=== PATIENT | female | born 2000 | race American Indian/Alaskan Native ===

== ENCOUNTER 2018-01-18 14:02 | Emergency (ER) | payer BC ==
[2018-01-18] MEDS ORDERED: Sodium Chloride 0.9% 1,000 ML IV STA (15:24)
[2018-01-18 15:25] VITALS: O2SAT 99; BMI 39.4
--- NOTE | 2018-01-18 16:22 | ED PDOC ---
Arrival/HPI - General Chief Complaint: Headache Time Seen by Provider: 01/18/18 15:22 Historian: Patient - History of Present Illness Narrative History of Present Illness (Text): 01/18/18 16:19 18 year old female, whose past medical history includes a current , who presents to the emergency department complaining of headache, fatigue, suprapubic abdominal pain, and diarrhea x 3 weeks. Patient notes she is 12 weeks with no prior ultrasound. She reports that the symptoms are intermittent. Patient denies any fevers, chills, chest pain, shortness of breath, nausea, vomiting, back pain, neck pain, or any other complaint. Denies vaginal bleeding 01/18/18 17:53 01/18/18 19:24 Time/Duration: < month (3 weeks) Symptom Onset: Gradual Symptom Course: Intermittent Activities at Onset: Light Context: Home Past Medical History - Provider Review Nursing Documentation Reviewed: Yes - Past History Past History: No Previous - Infectious Disease Hx of Infectious Diseases: None - Tetanus Immunization Tetanus Immunization: Unknown - Psychiatric Hx Depression: No Hx Emotional Abuse: No Hx Physical Abuse: No Hx Substance Use: No - Past Surgical History Past Surgical History: No Previous - Suicidal Assessment Feels Threatened In Home Enviroment: No Family/Social History - Physician Review Nursing Documentation Reviewed: Yes Family/Social History: Unknown Family HX Smoking Status: Never Smoked Hx Alcohol Use: No Hx Substance Use: No Hx Substance Use Treatment: No Allergies/Home Meds Allergies/Adverse Reactions: Allergies No Known Allergies Allergy (Verified 01/18/18 15:25) Home Medications: Home Meds Medication Instructions Recorded Confirmed No Known Home Med 01/18/18 01/18/18 Review of Systems - Physician Review All systems were reviewed & negative as marked: Yes - Review of Systems Constitutional: Fatigue Eyes: Normal ENT: Normal Respiratory: Normal. absent: SOB, Cough Cardiovascular: Normal. absent: Chest Pain Gastrointestinal: Abdominal Pain, Diarrhea. absent: Nausea, Vomiting Genitourinary Female: Normal. absent: Dysuria, Frequency, Hematuria, Urine Output Changes, Vaginal Bleeding, Vaginal Discharge Musculoskeletal: Normal. absent: Back Pain, Neck Pain Skin: Normal. absent: Rash Neurological: Headache Endocrine: Normal Hemo/Lymphatic: Normal Psychiatric: Normal Physical Exam Vital Signs Reviewed: Yes Vital Signs Temp Pulse Resp BP Pulse Ox 01/18/18 18:51 98.5 F 74 18 117/58 L 99 01/18/18 15:21 97.8 F 89 20 128/71 99 Temperature: Afebrile Blood Pressure: Normal Pulse: Regular Respiratory Rate: Normal Appearance: Positive for: Well-Appearing, Non-Toxic, Comfortable Pain Distress: None Mental Status: Positive for: Alert and Oriented X 3 - Systems Exam Head: Present: Atraumatic, Normocephalic Pupils: Present: PERRL Extroacular Muscles: Present: EOMI Conjunctiva: Present: Normal Mouth: Present: Moist Mucous Membranes Neck: Present: Normal Range of Motion Respiratory/Chest: Present: Clear to Auscultation, Good Air Exchange. No: Respiratory Distress, Accessory Muscle Use Cardiovascular: Present: Regular Rate and Rhythm, Normal S1, S2. No: Murmurs Abdomen: No: Tenderness, Distention, Peritoneal Signs Back: Present: Normal Inspection. No: CVA Tenderness, Midline Tenderness, Paraspinal Tenderness Upper Extremity: Present: Normal Inspection. No: Cyanosis, Edema Lower Extremity: Present: Normal Inspection. No: Edema Neurological: Present: GCS=15, CN II-XII Intact, Speech Normal Skin: Present: Warm, Dry, Normal Color. No: Rashes Psychiatric: Present: Alert, Oriented x 3, Normal Insight, Normal Concentration Medical Decision Making ED Course and Treatment: 01/18/18 16:23 Impression: 18 year old female presents to the emergency department complaining of a headache, fatigue, abdominal pain, and diarrhea x 3 weeks. Plan: -- Labs -- Beta HGC -- Tylenol -- Sodium Chloride -- UA -- Urine Culture -- Transvaginal US -- Reassess and disposition Progress Notes: 01/18/18 17:53 Headache is resolved after tylenol. Lungs cta b/l and afebrile. Presentation seems more consistent with uri. U/S UTERUS: Single Live intrauterine gestation in variable presentation. BPD: 2.68 cm corresponding to 14 weeks and 5 days of gestational age. HC: 10.17 cm corresponding to 14 weeks and 5 days of gestational age. AC: 7.65 cm corresponding to 14 weeks and 1 day of gestational age. FL: 1.33 cm corresponding to 13 weeks and 6 days of gestational age. age (Ultrasound estimated): 14 weeks and 1 day Date of delivery (Ultrasound estimated) : 07/18/2018 Heart rate: 158 bpm. Josefina-gestational hemorrhage: None. Placenta is posterior. CERVIX: Long and closed. No cervical abnormality seen. RIGHT OVARY: Not visualized. LEFT OVARY: Not visualized. FREE FLUID: None. OTHER FINDINGS: None. IMPRESSION: Single live intrauterine gestation with mean gestational age of 14 weeks and 1 day. The estimated date of delivery by ultrasound is 07/18/2018. No perigestational hemorrhage Patient discharged to follow-up with OB - Lab Interpretations Lab Results: 01/18/18 16:04 01/18/18 16:04 Lab Results 01/18/18 16:04: Beta HCG, Quant [id number] H 01/18/18 16:04: Sodium 139, Potassium 3.6, Chloride 103, Carbon Dioxide 25, Anion Gap 15, BUN 6 L, Creatinine 0.6 L, Est GFR ( Amer) > 60, Est GFR ( Non-Af Amer) > 60, Random Glucose 72, Calcium 9.2, Total Bilirubin < 0.1 L, AST 24, ALT 25, Alkaline Phosphatase 79, Total Protein 7.3, Albumin 3.7, Globulin 3.6, Albumin/Globulin Ratio 1.0 L, Lipase 40 01/18/18 16:04: Urine Color Yellow, Urine Appearance Clear, Urine pH 6.0, Ur Specific [place] >= 1.030, Urine Protein Negative, Urine Glucose (UA) Negative, Urine Ketones Negative, Urine Blood Negative, Urine Nitrate Negative, Urine Bilirubin Negative, Urine Urobilinogen 0.2, Ur Leukocyte Esterase Negative 01/18/18 16:04: WBC 8.9, RBC 3.80, Hgb 11.6 L, Hct 32.9 L, MCV 86.6, MCH 30.5, MCHC 35.3, RDW 12.0, Plt Count 258, MPV 9.1, Gran % 66.6, Lymph % (Auto) 27.9, [place] % (Auto) 4.6, Eos % (Auto) 0.8 L, Baso % (Auto) 0.1, Gran # 5.96, Lymph # ( Auto) 2.5, [place] # (Auto) 0.4, Eos # (Auto) 0.1, Baso # (Auto) 0.01 - RAD Interpretation Radiology Orders: 01/18/18 15:23 OB , LIMITED [US] Stat - Medication Orders Current Medication Orders: Discontinued Medications Acetaminophen (Tylenol 325mg Tab) 650 mg PO STAT STA Stop: 01/18/18 15:25 Last Admin: 01/18/18 16:05 Dose: 650 mg MAR Pain/Vitals Document 01/18/18 16:05 OCS (Rec: 01/18/18 16:06 OCS [id number]) Pain Reassessment Is This A Pain ReAssessment? Yes Sleep Is patient sleeping during reassessment? No Presence of Pain Presence of Pain Yes Pain Scale Used Pain Scale Used Numeric Location Pain Location Body Paper Machine Back Tender Description Intermittent Intensity 10 Scale Used Numeric Aggravating Factors ADL's Sodium Chloride (Sodium Chloride 0.9%) 1,000 mls @ 999 mls/hr IV .Q1H1M STA Stop: 01/18/18 16:24 Last Admin: 01/18/18 16:05 Dose: 999 mls/hr eMAR Start Stop Document 01/18/18 16:05 OCS (Rec: 01/18/18 16:05 OCS [id number]) Intravenous Solution Start Date 01/18/18 Start Time 16:05 End Date 01/18/18 End time 17:06 Total Infusion Time 61 - Scribe Statement The provider has reviewed the documentation as recorded by the Scribe Isa Barker All medical record entries made by the Scribe were at my direction and personally dictated by me. I have reviewed the chart and agree that the record accurately reflects my personal performance of the history, physical exam, medical decision making, and the department course for this patient. I have also personally directed, reviewed, and agree with the discharge instructions and disposition. Disposition/Present on Arrival - Present on Arrival Any Indicators Present on Arrival: No History of DVT/PE: No History of Uncontrolled Diabetes: No Urinary Catheter: No History of Decub. Ulcer: No History Surgical Site Infection Following: None - Disposition Have Diagnosis and Disposition been Completed?: Yes Diagnosis: URI (upper respiratory infection), Disposition: HOME/ ROUTINE Disposition Time: 17:57 Patient Plan: Discharge Condition: GOOD Additional Instructions: Follow-up with [facility]ODUCT [facility] MANAGER within 2 days. Return to ED if condition worsens. Rest and copious fluids. Referrals: Bruce Lacy MD [Staff Provider] - Follow up with primary Forms: [employer] (Emirati)
[2018-01-18 16:28] LABS: BASO # 0.01 K/mm3 (0.0-2.0); BASO % 0.1 % (0.0-3.0); EOS # 0.1 (0.0-0.7); EOS % 0.8 % (1.5-5.0); GRAN # 5.96 (1.4-6.5); GRAN % 66.6 % (50.0-68.0); HEMOGLOBIN 11.6 g/dL (12.0-16.0); LYMPH # 2.5 (1.2-3.4); LYMPH % 27.9 % (22.0-35.0); MEAN CELL VOLUME 86.6 fl (80.0-105.0); MEAN CORPUSCULAR HEMOGLOBIN 30.5 pg (25.0-35.0); MEAN CORPUSCULAR HGB CONC 35.3 g/dl (31.0-37.0); MEAN PLATELET VOLUME 9.1 fl (7.0-11.0); MONO # 0.4 (0.1-0.6); MONO % 4.6 % (1.0-6.0); RBC 3.8 10^6/uL (3.5-6.1); WHITE BLOOD COUNT 8.9 10^3/ul (4.5-11.0)
[2018-01-18 16:32] LABS: URINE BILIRUBIN NEGATIVE (NEGATIVE); URINE BLOOD NEGATIVE (NEGATIVE); URINE GLUCOSE (UA) NEGATIVE (NEGATIVE); URINE LEUKOCYTE ESTERASE NEGATIVE Leu/uL (NEGATIVE); URINE PROTEIN NEGATIVE mg/dL (<30 mg/dL); URINE UROBILINOGEN 0.2 E.U./dL (<1 E.U./dL)
[2018-01-18 16:34] LABS: ALBUMIN 3.7 g/dL (3.0-4.8); ALT/SGPT 25 U/L (7-56); AST/SGOT 24 U/L (14-36); BLOOD UREA NITROGEN 6 mg/dL (7-21); CALCIUM 9.2 mg/dL (8.4-10.5); GFR AFRICAN-AMERICAN > 60; GFR NON-AFRICAN AMERICAN > 60; LIPASE 40 U/L (23-300)
[2018-01-18 16:40] LABS: URINE APPEARANCE CLEAR (CLEAR); URINE COLOR YELLOW (YELLOW)
--- NOTE | 2018-01-18 18:10 | US ---
PROCEDURE: OB Pelvic Ultrasound HISTORY: Abdominal pain, COMPARISON: None available. FINDINGS: UTERUS: Single Live intrauterine gestation in variable presentation. BPD: 2.68 cm corresponding to 14 weeks and 5 days of gestational age. HC: 10.17 cm corresponding to 14 weeks and 5 days of gestational age. AC: 7.65 cm corresponding to 14 weeks and 1 day of gestational age. FL: 1.33 cm corresponding to 13 weeks and 6 days of gestational age. age (Ultrasound estimated): 14 weeks and 1 day Date of delivery (Ultrasound estimated) : 07/18/2018 Heart rate: 158 bpm. Josefina-gestational hemorrhage: None. Placenta is posterior. CERVIX: Long and closed. No cervical abnormality seen. RIGHT OVARY: Not visualized. LEFT OVARY: Not visualized. FREE FLUID: None. OTHER FINDINGS: None. IMPRESSION: Single live intrauterine gestation with mean gestational age of 14 weeks and 1 day. The estimated date of delivery by ultrasound is 07/18/2018. No perigestational hemorrhage.
[2018-01-18 18:53] VITALS: BP 117/58; PULSE 74; RESP 18; TEMP 98.5
== END 2018-01-18 18:29 | disposition home or self-care (01) ==
LOC: ED 14:02
DX: O26.891 Other specified pregnancy related conditions, first trimester (principal); J06.9 Acute upper respiratory infection, unspecified; Z3A.14 14 weeks gestation of pregnancy
CPT/HCPCS: 76815; 80053; 81003; 83690; 84702; 85025; 87086; 96360; 99285; J7030

== ENCOUNTER 2018-05-15 12:17 | Emergency (ER) | payer BC ==
[2018-05-15 13:03] VITALS: BMI 41.1
[2018-05-15 13:17] VITALS: RESP 18; TEMP 97.9
[2018-05-15] MEDS ORDERED: Lidocaine 1% 5ml Abboject IJ STA (13:22)
--- NOTE | 2018-05-15 13:27 | ED PDOC ---
Arrival/HPI - General Chief Complaint: Dental Pain Time Seen by Provider: 05/15/18 12:44 Historian: Patient - History of Present Illness Narrative History of Present Illness (Text): 18yo female, currently , comes to Emergency room reporting left sided dental pain x 4-5 days. Patient reports the pain is present while chewing but is unable to determine initiating incident. She has been using Orajel and Tylenol with no relief of pain; patient has not followed up with a dentist as well. Otherwise, no fever, chills, and no additional medical complaints. Symptom Onset: Gradual Past Medical History - Provider Review Nursing Documentation Reviewed: Yes - Past History Past History: No Previous - Infectious Disease Hx of Infectious Diseases: None - Tetanus Immunization Tetanus Immunization: Unknown - Psychiatric Hx Depression: No Hx Emotional Abuse: No Hx Physical Abuse: No Hx Substance Use: No - Past Surgical History Past Surgical History: No Previous - Suicidal Assessment Feels Threatened In Home Enviroment: No Family/Social History - Physician Review Nursing Documentation Reviewed: Yes Family/Social History: No Known Family HX Smoking Status: Never Smoked Hx Alcohol Use: No Hx Substance Use: No Hx Substance Use Treatment: No Allergies/Home Meds Allergies/Adverse Reactions: Allergies No Known Allergies Allergy (Verified 05/15/18 13:02) Home Medications: Home Meds Medication Instructions Recorded Confirmed Vit Calc,Iron,Folic 1 each PO DAILY 05/15/18 05/15/18 [ Vitamins] Review of Systems - Physician Review All systems were reviewed & negative as marked: Yes (per hpi) - Review of Systems Constitutional: absent: Fevers ENT: Other (left sided dental pain) Physical Exam - Physical Exam Narrative Physical Exam (Text): Gen: VS reviewed, alert, well developed, well nourished, nontoxic, mild distress. ENT: normal pharynx; (+) multiple dental caries noted. (-) gingival swelling Eye: EOMI, PERRL Neck: no JVD, supple, no adenopathy CV: regular rate, regular rhythm, no rubs, no murmur, no gallops, S1, S2, pulses equal and strong Pulm: no distress, clear to auscultation, no wheeze, no rhonchi, breath sounds equal, no rales Abd: Gravid abdomen Ext: no edema Skin: good color, no rash, no cyanosis Psych: responds appropriately to questions, normal affect Neuro: oriented x 3, CN2-12 intact grossly, motor intact, sensation intact Vital Signs Temp Resp BP 05/15/18 13:03 97.9 F 18 114/76 Medical Decision Making ED Course and Treatment: Impression: 18yo female with left sided dental pain Plan: -- Lidocaine 20mg INJ -- Reassess and disposition Progress Notes: 05/15/18 14:20 toothache with multiple teeth involved, no apparent abscess to visual inspection, no oral cellulitis, will empirically tx with abx and patient informed to follow up with dentist. - Medication Orders Current Medication Orders: Lidocaine HCl (Lidocaine 1% (20ml)) 20 ml IJ STAT STA Stop: 05/15/18 13:23 Procedures - Time-Out Type of Procedure: local infiltration lidocaine Site of Procedure: left lower dental nerve block Correct Patient (with visual ID + MR# on ID Band): Yes Correct Procedure: Yes Correct Site Marked: Yes Physician Name: Luis - Additional Procedures Progress: with patients verbal consent, all risks and explained to the patient. approx 3cc of 1% lido without epi was infiltrated into the soft tissues of the left lower gumline. patient reported immeidate relief of toothache and tolerated procedure well. - Scribe Statement The provider has reviewed the documentation as recorded by the Gerardo Madrigal Provider Scribe Attestation: All medical record entries made by the Scribe were at my direction and personally dictated by me. I have reviewed the chart and agree that the record accurately reflects my personal performance of the history, physical exam, medical decision making, and the department course for this patient. I have also personally directed, reviewed, and agree with the discharge instructions and disposition. Disposition/Present on Arrival - Present on Arrival Any Indicators Present on Arrival: No History of DVT/PE: No History of Uncontrolled Diabetes: No Urinary Catheter: No History of Decub. Ulcer: No History Surgical Site Infection Following: None - Disposition Have Diagnosis and Disposition been Completed?: Yes Diagnosis: Toothache Disposition: HOME/ ROUTINE Disposition Time: 14:21 Patient Plan: Discharge Condition: STABLE Discharge Instructions (ExitCare): Dental Pain (DC) Additional Instructions: Follow up with the dentist as soon as possible. FELICIANO LINDSEY, thank you for letting us take care of you today. Your provider was Dr. Donaldo Smith and you were treated for toothache. The emergency medical care you received today was directed at your acute symptoms. If you were prescribed any medication, please fill it and take as directed. It may take several days for your symptoms to resolve. Return to the Emergency Department if your symptoms worsen, do not improve, or if you have any other problems. Please contact your doctor or call one of the physicians/clinics you have been referred to that are listed on the Patient Visit Information form that is included in your discharge packet. Bring any paperwork you were given at discharge with you along with any medications you are taking to your follow up visit. Our treatment cannot replace ongoing medical care by a primary care provider outside of the emergency department. Thank you for allowing the [facility] team to be part of your care today. If you had an X-Ray or CT scan: A Radiologist will review the ED reading if any change in treatment is needed we will contact you. If you had a blood, urine, or wound culture: It will take several days for the results, if any change in treatment is needed we will contact you. If you had an STI test: It will take 48 hours for the results. Please call after 1 week if you have not heard back. Prescriptions: Penicillin V Potassium 500 mg PO BID 10 Days #20 tab Forms: [employer] (Estonian), WORK NOTE
[2018-05-15 15:02] VITALS: BP 118/76; PULSE 76; O2SAT 99
== END 2018-05-15 15:03 | disposition home or self-care (01) ==
LOC: ED 12:17
DX: K08.89 Other specified disorders of teeth and supporting structures (principal)

== ENCOUNTER 2018-07-06 16:14 | Emergency (ER) | payer BC ==
[2018-07-06 16:15] VITALS: BMI 41.1
[2018-07-06] MEDS ORDERED: Sodium Chloride 0.9% 1,000 ML IV STA (16:27)
[2018-07-06 16:33] VITALS: BP 107/73; PULSE 98; RESP 18; TEMP 97.6; O2SAT 99
[2018-07-06 16:40] LABS: EOS # 0.1 (0.0-0.7); EOS % 1.2 % (1.5-5.0); GRAN # 3.28 (1.4-6.5); GRAN % 67.2 % (50.0-68.0); HEMOGLOBIN 13.4 g/dL (12.0-16.0); LYMPH # 1.2 (1.2-3.4); MEAN CORPUSCULAR HEMOGLOBIN 30.3 pg (25.0-35.0); MEAN CORPUSCULAR HGB CONC 34.4 g/dl (31.0-37.0); MEAN PLATELET VOLUME 9.4 fl (7.0-11.0); MONO # 0.3 (0.1-0.6); MONO % 6.6 % (1.0-6.0); RBC 4.42 10^6/uL (3.5-6.1); RED CELL DISTRIBUTION WIDTH 12.6 % (11.5-14.5); WHITE BLOOD COUNT 4.9 10^3/uL (4.5-11.0)
[2018-07-06 16:49] LABS: PARTIAL THROMBOPLASTIN TIME 28.9 Seconds (25.1-36.5); PROTHROMBIN TIME 11.4 SECONDS (9.4-12.5)
--- NOTE | 2018-07-06 16:53 | ED PDOC ---
Arrival/HPI - General Chief Complaint: Abdominal Pain Historian: Patient - History of Present Illness Narrative History of Present Illness (Text): 07/06/18 16:35 18 year old female currently 38 weeks presenting to the emergency department complaining of abdominal pain for the last 3 days. The patient reports having cramps of increasing pain that lasts less than 5 minutes. Patient denies any vaginal discharge or bleeding, fever, chills, shortness of breath, chest pain, back pain, neck pain, dizziness, or any other complaints. PMD: Tj Benavides Time/Duration: Other (3 days) Symptom Onset: Gradual Symptom Course: Unchanged Activities at Onset: Rest Context: Home Past Medical History - Provider Review Nursing Documentation Reviewed: Yes - Travel History Have you recently traveled outside [place] w/in the past 3 mons?: No - Past History Past History: No Previous - Infectious Disease Hx of Infectious Diseases: None - Tetanus Immunization Tetanus Immunization: Unknown - Psychiatric Hx Depression: No Hx Emotional Abuse: No Hx Physical Abuse: No Hx Substance Use: No - Past Surgical History Past Surgical History: No Previous - Suicidal Assessment Feels Threatened In Home Enviroment: No Family/Social History - Physician Review Nursing Documentation Reviewed: Yes Family/Social History: No Known Family HX Smoking Status: Never Smoked Hx Alcohol Use: No Hx Substance Use: No Hx Substance Use Treatment: No Allergies/Home Meds Allergies/Adverse Reactions: Allergies No Known Allergies Allergy (Verified 07/06/18 16:26) Home Medications: Home Meds Medication Instructions Recorded Confirmed Vit Calc,Iron,Folic 1 each PO DAILY 05/15/18 07/06/18 [ Vitamins] Review of Systems - Physician Review All systems were reviewed & negative as marked: Yes - Review of Systems Constitutional: absent: Fevers, Night Sweats Respiratory: absent: SOB Cardiovascular: Chest Pain (mild chest pain) Gastrointestinal: Diarrhea, Nausea, Vomiting Genitourinary Female: absent: Vaginal Bleeding, Vaginal Discharge Musculoskeletal: absent: Back Pain, Neck Pain Neurological: Headache. absent: Dizziness Physical Exam Vital Signs Reviewed: Yes Vital Signs Temp Pulse Resp BP Pulse Ox 07/06/18 16:23 97.6 F 98 H 18 107/73 99 Temperature: Afebrile Blood Pressure: Normal Pulse: Tachycardic Respiratory Rate: Normal Appearance: Positive for: Well-Appearing, Non-Toxic Pain Distress: None Mental Status: Positive for: Alert and Oriented X 3 - Systems Exam Head: Present: Atraumatic, Normocephalic Pupils: Present: PERRL Extroacular Muscles: Present: EOMI Conjunctiva: Present: Normal Respiratory/Chest: Present: Clear to Auscultation, Good Air Exchange. No: Respiratory Distress, Accessory Muscle Use Cardiovascular: Present: Regular Rate and Rhythm, Normal S1, S2. No: Murmurs Abdomen: Present: Other (+gravid, soft non-tender) Genitourinary/Pelvic Exam: Present: Other (+white discharge noted in vaginal area, 2 cm dilated and less than 50% effaced). No: Vaginal Discharge, Vaginal Bleeding Neurological: Present: GCS=15, CN II-XII Intact, Speech Normal Skin: Present: Warm, Dry, Normal Color. No: Rashes Psychiatric: Present: Alert, Oriented x 3, Normal Insight, Normal Concentration Medical Decision Making ED Course and Treatment: 07/06/18 16:50 Impression: 18 year old female who is 38 weeks presents to the emergency department for abdominal pain. Differential Diagnosis included but are not limited to: Plan: -- Type and screen -- CMP -- IV fluids -- Urine culture -- Urinalysis HCG -- Reassess and disposition Prior Visits: Notes and results from previous visits were reviewed. Progress Notes: 07/06/18 17:[address] Thomas([facility]) who refused transfer due to patient being full term and relegates care to [facility]. Call placed to [facility]. Updated plan explained to patient without mother in the room. 07/06/18 17:12 Patient has decided to AMA and seek care at [facility]. Consent form signed. 07/06/18 17:12 Leaving Against Medical Advice (AMA): The patient is choosing to leave against medical advice. I have personally explained to the patient that choosing to do so may result in permanent bodily harm or . I have discussed at great length that without further evaluation and monitoring there may be unforeseen circumstances and/or deterioration causing permanent bodily harm or as a result of their choice. The patient is alert, oriented, and shows the mental capacity to make clear decisions regard ing the patients health care at this time. The patient continues to wish to leave against medical advice. In light of the patients decision to leave against medical advice, follow-up has been arranged and the patient is aware of the importance to following up as instructed. The patient has been advised that they should return to the emergency room immediately if they change their mind at any time, or if their condition begins to change or worsen in any way. - Lab Interpretations Lab Results: 07/06/18 16:35 Lab Results 07/06/18 16:35: PT 11.4, INR 1.00, APTT 28.9 07/06/18 16:35: WBC 4.9, RBC 4.42, Hgb 13.4, Hct 38.9, MCV 88.0, MCH 30.3, MCHC 34.4, RDW 12.6, Plt Count 221, MPV 9.4, Gran % 67.2, Lymph % (Auto) 25.0, [place] % (Auto) 6.6 H, Eos % (Auto) 1.2 L, Baso % (Auto) 0.0, Gran # 3.28, Lymph # (Auto) 1.2, [place] # (Auto) 0.3, Eos # (Auto) 0.1, Baso # (Auto) 0.00 07/06/18 16:30: Blood Type Pending, Antibody Screen Pending, BBK History Checked No verified bt - Medication Orders Current Medication Orders: Sodium Chloride (Sodium Chloride 0.9%) 1,000 mls @ 100 mls/hr IV .Q10H STA Stop: 07/07/18 02:26 - Scribe Statement The provider has reviewed the documentation as recorded by the Gerardo Foster All medical record entries made by the Gerardo were at my direction and personally dictated by me. I have reviewed the chart and agree that the record accurately reflects my personal performance of the history, physical exam, medical decision making, and the department course for this patient. I have also personally directed, reviewed, and agree with the discharge instructions and disposition. Disposition/Present on Arrival - Present on Arrival Any Indicators Present on Arrival: No History of DVT/PE: No History of Uncontrolled Diabetes: No Urinary Catheter: No History of Decub. Ulcer: No History Surgical Site Infection Following: None - Disposition Have Diagnosis and Disposition been Completed?: Yes Diagnosis: Disposition: AGAINST MEDICAL ADVICE Disposition Time: 17:12 Condition: GUARDED Referrals: Tj Mendes MD [Primary Care Provider] - Follow up with primary Forms: [employer] (Iranian)
[2018-07-06 17:02] LABS: ALB/GLOB RATIO 0.9 (1.1-1.8); ALBUMIN 3.7 g/dL (3.0-4.8); ALT/SGPT 23 U/L (7-56); AST/SGOT 33 U/L (14-36); BLOOD UREA NITROGEN 4 mg/dL (7-21); CALCIUM 9.1 mg/dL (8.4-10.5); GFR NON-AFRICAN AMERICAN > 60
== END 2018-07-06 17:15 | disposition left against medical advice (07) ==
LOC: ED 16:14
DX: O26.893 Other specified pregnancy related conditions, third trimester (principal); Z3A.38 38 weeks gestation of pregnancy
CPT/HCPCS: 80053; 85025; 85610; 85730; 86850; 86900; 99284; J7030

== ENCOUNTER 2018-08-15 20:11 | Emergency (ER) | payer BC ==
[2018-08-15 20:11] VITALS: BMI 41.1
[2018-08-15 20:22] VITALS: RESP 18; TEMP 98.6
[2018-08-15] MEDS ORDERED: Sodium Chloride 0.9% 1,000 ML IV STA (20:36)
[2018-08-15 21:16] LABS: URINE BILIRUBIN NEGATIVE (NEGATIVE); URINE BLOOD MODERATE (NEGATIVE); URINE GLUCOSE (UA) NEGATIVE (NEGATIVE); URINE LEUKOCYTE ESTERASE NEGATIVE Leu/uL (NEGATIVE); URINE PROTEIN NEGATIVE mg/dL (<30 mg/dL)
[2018-08-15 21:17] LABS: BASO # 0.01 K/mm3 (0.0-2.0); BASO % 0.1 % (0.0-3.0); EOS # 0.1 (0.0-0.7); EOS % 0.8 % (1.5-5.0); GRAN # 5.26 (1.4-6.5); GRAN % 72.7 % (50.0-68.0); HEMOGLOBIN 11.9 g/dL (12.0-16.0); LYMPH # 1.7 (1.2-3.4); LYMPH % 23.2 % (22.0-35.0); MEAN CELL VOLUME 86.2 fl (80.0-105.0); MEAN CORPUSCULAR HEMOGLOBIN 29.3 pg (25.0-35.0); MEAN PLATELET VOLUME 9.5 fl (7.0-11.0); MONO # 0.2 (0.1-0.6); MONO % 3.2 % (1.0-6.0); RBC 4.06 10^6/uL (3.5-6.1); RED CELL DISTRIBUTION WIDTH 11.5 % (11.5-14.5); WHITE BLOOD COUNT 7.2 10^3/uL (4.5-11.0)
[2018-08-15 21:17] LABS: URINE APPEARANCE SL CLOUDY (CLEAR); URINE COLOR YELLOW (YELLOW)
[2018-08-15 21:28] LABS: INR 0.98; PARTIAL THROMBOPLASTIN TIME 30.4 Seconds (25.1-36.5); PROTHROMBIN TIME 11.2 SECONDS (9.4-12.5)
[2018-08-15 21:36] LABS: ALB/GLOB RATIO 1.3 (1.1-1.8); ALT/SGPT 30 U/L (7-56); AST/SGOT 59 U/L (14-36); BLOOD UREA NITROGEN 5 mg/dL (7-21); CALCIUM 8.9 mg/dL (8.4-10.5); GFR NON-AFRICAN AMERICAN > 60; LIPASE 62 U/L (23-300)
[2018-08-15 21:51] LABS: TROPONIN I < 0.01 ng/mL
[2018-08-15 22:02] LABS: URINE BACTERIA MOD /hpf; URINE WBC 15 - 20 /hpf (0-6)
[2018-08-15] MEDS ORDERED: Iohexol 350 MG/100 ML VIAL ONE (23:47)
[2018-08-16 03:13] VITALS: BP 127/84; PULSE 90; O2SAT 100
--- NOTE | 2018-08-16 08:22 | CT ---
Date of service: 08/15/2018 PROCEDURE: CT Chest with contrast (Pulmonary Angiogram) HISTORY: epigastric/back pain COMPARISON: None available. TECHNIQUE: Axial computed tomography images were obtained of the chest in the pulmonary arterial phase of enhancement. Coronal and sagittal reformatted images were created and reviewed. Intravenous contrast dose: 100 cc of Omni 350 Radiation dose: Total exam DLP = 560.66 mGy-cm. This CT exam was performed using one or more of the following dose reduction techniques: Automated exposure control, adjustment of the mA and/or kV according to patient size, and/or use of iterative reconstruction technique. FINDINGS: PULMONARY ARTERIES: Unremarkable. No pulmonary embolism. AORTA: No acute findings. No thoracic aortic aneurysm. No aortic atherosclerotic calcification or mural plaque present. LUNGS: Unremarkable. No nodule, mass or pulmonary consolidation. PLEURAL SPACES: Unremarkable. No effusion or pneumothorax. HEART: Unremarkable. No cardiomegaly. No significant pericardial effusion. LYMPH NODES: No lymphadenopathy. BONES, CHEST WALL: Unremarkable. No fracture or destructive lesion OTHER FINDINGS: The report concurs with the preliminary [facility] report IMPRESSION: Unremarkable CT pulmonary angiogram. No pulmonary embolus.
--- NOTE | 2018-08-24 23:37 | ED PDOC ---
Arrival/HPI - General Chief Complaint: GI Problem Time Seen by Provider: 08/15/18 20:14 Historian: Patient - History of Present Illness Narrative History of Present Illness (Text): 08/24/18 23:32 18yo female with no pmhx who present complaint of burning epigastric abdominal pain that radiates to her back hours [employer]. Notes having a week ago. Denies chest pain, SOB,diaphoresis, calf pain, LE edema, fever, chills, sick c ontact, any other complaint. Past Medical History - Provider Review Nursing Documentation Reviewed: Yes - Past History Past History: No Previous - Infectious Disease Hx of Infectious Diseases: None - Tetanus Immunization Tetanus Immunization: Unknown - Psychiatric Hx Depression: No Hx Emotional Abuse: No Hx Physical Abuse: No Hx Substance Use: No - Past Surgical History Past Surgical History: No Previous - Surgical History Hx Section: Yes - Anesthesia Hx Anesthesia: Yes Hx Anesthesia Reactions: No Hx Malignant Hyperthermia: No - Suicidal Assessment Feels Threatened In Home Enviroment: No Family/Social History - Physician Review Nursing Documentation Reviewed: Yes Family/Social History: Unknown Family HX Smoking Status: Never Smoked Hx Alcohol Use: No Hx Substance Use: No Hx Substance Use Treatment: No Allergies/Home Meds Allergies/Adverse Reactions: Allergies No Known Allergies Allergy (Verified 07/06/18 16:26) Home Medications: Home Meds Medication Instructions Recorded Confirmed Vit Calc,Iron,Folic 1 each PO DAILY 05/15/18 07/06/18 [ Vitamins] Review of Systems - Physician Review All systems were reviewed & negative as marked: Yes - Review of Systems Constitutional: Normal Eyes: Normal ENT: Normal Respiratory: Normal Cardiovascular: Normal Gastrointestinal: Abdominal Pain, Nausea, Vomiting. absent: Constipation, Diarrhea, Hematochezia, Hematemesis Genitourinary Female: Normal Musculoskeletal: Normal Skin: Normal Neurological: Normal Endocrine: Normal Hemo/Lymphatic: Normal Psychiatric: Normal Physical Exam Vital Signs Reviewed: Yes Vital Signs Temp Pulse Resp BP Pulse Ox 08/16/18 02:00 90 18 127/84 100 08/15/18 20:11 98.6 F 92 H 18 112/74 98 Temperature: Afebrile Blood Pressure: Normal Pulse: Regular Respiratory Rate: Normal Appearance: Positive for: Well-Appearing, Non-Toxic, Comfortable Pain Distress: None Mental Status: Positive for: Alert and Oriented X 3 - Systems Exam Head: Present: Atraumatic, Normocephalic Pupils: Present: PERRL Extroacular Muscles: Present: EOMI Conjunctiva: Present: Normal Mouth: Present: Moist Mucous Membranes Neck: Present: Normal Range of Motion Respiratory/Chest: Present: Clear to Auscultation, Good Air Exchange. No: Respiratory Distress, Accessory Muscle Use Cardiovascular: Present: Regular Rate and Rhythm, Normal S1, S2. No: Murmurs Abdomen: Present: Tenderness (Epigastric tenderness), Normal Bowel Sounds, Guarding (Voluntary), Other (soft). No: Distention, Peritoneal Signs, Rebound, McBurney's Point Tender, Rovsing's Sign Present Back: Present: Normal Inspection Upper Extremity: Present: Normal Inspection. No: Cyanosis, Edema Lower Extremity: Present: Normal Inspection. No: Edema Neurological: Present: GCS=15, CN II-XII Intact, Speech Normal Skin: Present: Warm, Dry, Normal Color. No: Rashes Psychiatric: Present: Alert, Oriented x 3, Normal Insight, Normal Concentration Medical Decision Making - Lab Interpretations Microbiology Results: Microbiology Results 08/15/18 Unknown Urine,Clean Catch Urine Culture - Final No Growth (<1,000 CFU/ML) Lab Results: PT 11.2 SECONDS (9.4-12.5) 08/15/18 21:07 INR 0.98 08/15/18 21:07 APTT 30.4 Seconds (25.1-36.5) 08/15/18 21:07 D-Dimer, Quantitative 323 ng/mlDDU (0-243) H 08/15/18 21:07 Troponin I < 0.01 ng/mL 08/15/18 21:07 Total Bilirubin 0.3 mg/dL (0.2-1.3) 08/15/18 21:07 AST 59 U/L (14-36) H D 08/15/18 21:07 ALT 30 U/L (7-56) 08/15/18 21:07 Alkaline Phosphatase 106 U/L (38-126) 08/15/18 21:07 Total Protein 7.2 g/dL (5.8-8.3) 08/15/18 21:07 Albumin 4.0 g/dL (3.0-4.8) 08/15/18 21:07 Globulin 3.2 gm/dL 08/15/18 21:07 Albumin/Globulin Ratio 1.3 (1.1-1.8) 08/15/18 21:07 Lipase 62 U/L (23-300) 08/15/18 21:07 Urine Color Yellow (YELLOW) 08/15/18 20:37 Urine Appearance Sl cloudy (CLEAR) 08/15/18 20:37 Urine pH 7.0 (4.7-8.0) 08/15/18 20:37 Ur Specific [place] 1.020 (1.005-1.035) 08/15/18 20:37 Urine Protein Negative mg/dL (<30 mg/dL) 08/15/18 20:37 Urine Glucose (UA) Negative mg/dL (NEGATIVE) 08/15/18 20:37 Urine Ketones Negative mg/dL (NEGATIVE) 08/15/18 20:37 Urine Blood Moderate (NEGATIVE) H 08/15/18 20:37 Urine Nitrate Negative (NEGATIVE) 08/15/18 20:37 Urine Bilirubin Negative (NEGATIVE) 08/15/18 20:37 Urine Urobilinogen 1.0 E.U./dL (<1 E.U./dL) H 08/15/18 20:37 Ur Leukocyte Esterase Negative Alberto/uL (NEGATIVE) 08/15/18 20:37 Urine RBC 10 - 15 /hpf (0-2) H 08/15/18 20:37 Urine WBC 15 - 20 /hpf (0-6) H 08/15/18 20:37 Ur Epithelial Cells 10 - 12 /hpf (0-5) H 08/15/18 20:37 Urine Bacteria Mod /hpf (NONE) 08/15/18 20:37 - RAD Interpretation Radiology Orders: 08/15/18 21:47 ANGIO CHEST PE PROTOCOL [CT] Stat - Medication Orders Current Medication Orders: Discontinued Medications Famotidine (Pepcid) 20 mg IVP STAT STA Stop: 08/15/18 20:37 Last Admin: 08/15/18 21:10 Dose: 20 mg IVP Administration Document 08/15/18 21:10 RD (Rec: 08/15/18 21:24 RD [facility] [email or web address]) Charges for Administration # of IVP Administrations 1 Sodium Chloride (Sodium Chloride 0.9%) 1,000 mls @ 1,000 mls/hr IV .Q1H STA Stop: 08/15/18 21:35 Last Admin: 08/15/18 20:45 Dose: 1,000 mls/hr eMAR Start Stop Document 08/15/18 20:45 RD (Rec: 08/15/18 21:24 RD [email or web address]) Intravenous Solution Start Date 08/15/18 Start Time 20:45 End Date 08/15/18 End time 21:45 Total Infusion Time 60 Ondansetron HCl (Zofran Inj) 4 mg IVP STAT STA Stop: 08/15/18 20:37 Last Admin: 08/15/18 21:00 Dose: 4 mg IVP Administration Document 08/15/18 21:00 RD (Rec: 08/15/18 21:24 RD [email or web address]) Charges for Administration # of IVP Administrations 1 Disposition/Present on Arrival - Present on Arrival Any Indicators Present on Arrival: No History of DVT/PE: No History of Uncontrolled Diabetes: No Urinary Catheter: No History of Decub. Ulcer: No History Surgical Site Infection Following: None - Disposition Have Diagnosis and Disposition been Completed?: Yes Diagnosis: Abdominal pain, Vomiting Disposition: HOME/ ROUTINE Disposition Time: 02:00 Patient Plan: Discharge Condition: STABLE Discharge Instructions (ExitCare): Acute Abdomen (Belly Pain), Nausea and Vomiting, Adult (DC) Referrals: Taryn Gates MD [Medical Doctor] - Follow up with primary Forms: Versus (Tongan)
== END 2018-08-16 02:00 | disposition home or self-care (01) ==
LOC: ED 20:11
DX: R11.10 Vomiting, unspecified (principal); R10.13 Epigastric pain
CPT/HCPCS: 71275; 80053; 81001; 82550; 83615; 83690; 83735; 84484; 85025; 85378; 85610; 85730; 87086; 96361; 96374; 96375; 99281; J2405; J7030; Q9967